=== PATIENT | male | born 1960 | race Hispanic/Latino ===

== ENCOUNTER → 2017-07-15 | Outpatient (CLI) | payer SELFPAY ==
[~2017-07-15] MED LIST: AMLO10TA2 PO; ASPI-1012 PO; GLIP10TA9 PO; HYDR-309 PO; PRAV40TA3 PO
== END | disposition home or self-care (01) ==
LOC: OIH 14:33
PROVIDERS: ATTEND Family Medicine
DX: Z13.6 Encounter for screening for cardiovascular disorders (principal)
CPT/HCPCS: 75571

== ENCOUNTER 2017-07-22 15:00 | Inpatient (IN) | payer OTHER ==
[~2017-07-22] VITALS: Ht 179.1 cm; Wt 154.7 kg
[2017-09-20 14:40] VITALS: BP 144/85
[2017-09-20 14:40] LABS: APPEARANCE,URINE Clear (CLEAR); BILIRUBIN,URINE Small (NEGATIVE); COLOR,URINE Dark Yellow (YELLOW); GLUCOSE, URINE (UA) Negative (NEGATIVE); KETONES,URINE Trace mg/dL (NEGATIVE); LEUKOCYTE ESTERASE ,URINE Negative (NEGATIVE); NITRATE,URINE Negative (NEGATIVE); OCCULT BLOOD,URINE Negative (NEGATIVE); PROTEIN,URINE Negative (NEGATIVE)
[2017-09-20 14:40] LABS: BASOPHILS % (AUTO) 0.7 % (0.0-5.0); EOSINOPHILS % (AUTO) 2.7 % (0.0-8.0); HEMATOCRIT 52.9 % (42-54); LYMPHOCYTES % (AUTO) 17.5 % (21.0-51.0); MEAN CORPUSCULAR HEMOGLOBIN 31.4 pg (27.0-33.0); MEAN CORPUSCULAR HGB CONC 33.6 g/dL (32.0-36.0); MEAN CORPUSCULAR VOLUME 93.4 fL (79-99); MONOCYTES % (AUTO) 7.2 % (3.0-13.0); NEUTROPHILS % (AUTO) 71.9 % (40.0-77.0); NUCLEATED RED BLOOD CELLS 0.1 % (0.0-0.19); PLATELET COUNT (AUTO) 174 K/uL (130-400); RED BLOOD CELL COUNT(AUTO) 5.66 MIL/uL (4.50-6.20); WHITE BLOOD COUNT (AUTO) 8.9 K/uL (4.8-10.8)
[2017-09-20 14:45] LABS: CREATININE 0.9 mg/dL (0.5-1.5)
[2017-09-20 14:51] LABS: BACTERIA,URINE Rare /HPF (None Seen); RBC,URINE None Seen /HPF (0-1); SQUAMOUS EPITHELIAL CELL,UR None Seen /HPF (0-2); WBC,URINE 0-1 /HPF (0-1)
[2017-09-20] MEDS ORDERED: GLIP10TA9 PO (15:02)
[2017-09-20] MEDS ORDERED: AMLO10TA2 PO (15:02)
[2017-09-20] MEDS ORDERED: PRAV40TA3 PO (15:02)
[2017-09-20 16:08] LABS: INR 0.97 (0.85-1.15); PARTIAL THROMBOPLASTIN TIME 29.2 SEC (26.3-35.5); PROTHROMBIN TIME 10.2 SEC (9.6-11.6)
[2017-09-20 19:55] VITALS: BP 149/69
[2017-09-21] VITALS (20 sets, daily range): BP systolic 110–135; BP diastolic 64–80
[2017-09-21] MEDS ORDERED: CEFAZOLIN 3GM /D5W 100ML 100 ML IV ONE (08:00)
[2017-09-21] MEDS ORDERED: SODIUM CHLORIDE 0.9% 1000ML 1,000 ML IV ONE (09:22)
[2017-09-21] MEDS ORDERED: METOCLOPRAMIDE 10 MG/2 ML VIAL ONE (09:55)
[2017-09-21] MEDS ORDERED: CELECOXIB 200 MG CAP ONE (09:56)
[2017-09-21] MEDS ORDERED: KETOROLAC TROMETHAMINE 15MG/ML ONE (09:56)
[2017-09-21] MEDS ORDERED: OXYCODONE HCL 10 MG TAB.SR.12H PO ONE (09:56)
[2017-09-21] MEDS ORDERED: ACETAMINOPHEN EXTRA STRENGTH 500 MG TABLET ONE (09:56)
[2017-09-21] MEDS ORDERED: CEFAZOLIN SODIUM 1 GM VIAL ONE (10:12)
[2017-09-21] MEDS ORDERED: EPINEPHRINE 1 MG/ML AMPULE ONE (10:12)
[2017-09-21] MEDS ORDERED: TRANEXAMIC ACID 1000MG/10ML IV ONE ×2 (10:12)
[2017-09-21] MEDS ORDERED: BUPIVACAINE/PF 0.25% 30ML VIAL IJ ONE (10:12)
[2017-09-21] MEDS: CEFAZOLIN SODIUM 1 GM VIAL ONE ×2 (10:15→11:20)
[2017-09-21] MEDS ORDERED: MIDAZOLAM HCL 1 MG/ML 2ML VIAL ONE (10:58)
[2017-09-21] MEDS ORDERED: PROPOFOL 10 MG/ML 20ML VIAL IV ONE (10:58)
[2017-09-21] MEDS ORDERED: FENTANYL CITRATE PF 50 MCG/1 ML 2ML VIAL ONE ×2 (10:59→12:08)
[2017-09-21] MEDS ORDERED: ROPIVACAINE 0.5% 5MG/ML 30ML IJ ONE (11:03)
[2017-09-21] MEDS ORDERED: MEPERIDINE-PF 50 MG/ML SYG ONE (11:14)
[2017-09-21] MEDS ORDERED: SODIUM CHLORIDE 0.9% 10 ML VIAL ONE (11:54)
[2017-09-21] MEDS ORDERED: ROCURONIUM BROMIDE 10MG/1ML 5ML VL ONE (11:54)
[2017-09-21] MEDS ORDERED: PHENYLEPHRINE HCL 10 MG/ML 1ML VIAL IV ONE (11:54)
[2017-09-21] MEDS ORDERED: LIDOCAINE PF 2% 5ML ABBOJECT ONE (11:54)
[2017-09-21] MEDS ORDERED: NEOSTIGMINE 5MG/5ML SYR IV ONE (11:54)
[2017-09-21] MEDS ORDERED: GLYCOPYRROLATE 1 MG/5 ML SYRINGE ONE (11:54)
[2017-09-21] MEDS ORDERED: POTASSIUM CHLORIDE 10% ELIXIR 20 MEQ/15 ML UDCUP PO PRN (13:30)
[2017-09-21] MEDS ORDERED: TRAMADOL HCL 50 MG TABLET PO PRN (13:30)
[2017-09-21] MEDS ORDERED: ONDANSETRON HCL 4 MG/2 ML VIAL IVP PRN (13:30)
[2017-09-21] MEDS ORDERED: OXYCODONE HCL 5 MG TAB PO PRN (13:30)
[2017-09-21] MEDS ORDERED: LIDOCAINE HCL-MPF 1% 2ML VIAL IVP PRN (13:30)
[2017-09-21] MEDS ORDERED: POTASSIUM CHLORIDE 20 MEQ ERTAB PO PRN (13:30)
[2017-09-21] MEDS ORDERED: CALCIUM CARBONATE 500 MG TABLET PO PRN (13:30)
[2017-09-21] MEDS ORDERED: FERROUS FUMARATE 324 MG TABLET PO PRN (13:30)
[2017-09-21] MEDS ORDERED: KETOROLAC TROMETHAMINE 15MG/ML IV PRN (13:30)
[2017-09-21] MEDS ORDERED: POTASSIUM CHLORIDE 20MEQ/100ML 100 ML IV PRN (13:30)
[2017-09-21] MEDS: ACETAMINOPHEN EXTRA STRENGTH 500 MG TABLET PO SCH ×2 (13:30→20:37)
[2017-09-21] MEDS ORDERED: DiphenhydrAMINE HCL 50 MG/ML VIAL IVP PRN (13:30)
[2017-09-21] MEDS ORDERED: TEMAZEPAM 15 MG CAPSULE PO PRN (13:30)
[2017-09-21] MEDS ORDERED: MEPERIDINE-PF 25 MG/ML SYG ONE (14:32)
[2017-09-21] MEDS: SODIUM CHLORIDE 0.9% 1000ML 1,000 ML IV SCH (15:24)
[2017-09-21] MEDS: INSULIN HUMULIN R 100 UNIT/ML 3ML SQ SCH ×2 (16:26→20:41)
[2017-09-21] MEDS: CEFAZOLIN SODIUM 1 GM VIAL IVP SCH (17:55)
[2017-09-21] MEDS ORDERED: CEFAZOLIN 3GM /D5W 100ML 100 ML IV SCH (18:30)
[2017-09-21] MEDS: PREGABALIN 25 MG CAP PO SCH (20:36)
[2017-09-21] MEDS: AMLODIPINE BESYLATE 5 MG TAB PO SCH (20:36)
[2017-09-21] MEDS: CELECOXIB 200 MG CAP PO SCH (20:37)
[2017-09-21] MEDS: ATORVASTATIN CALCIUM 10 MG TABLET PO SCH (20:37)
[2017-09-21] MEDS: GLIPIZIDE 5 MG TABLET PO SCH (20:37)
[2017-09-21] MEDS: ASPIRIN 325 MG TABLET PO SCH (20:37)
[2017-09-21] MEDS: FAMOTIDINE 20MG TAB 20 MG TAB PO SCH (20:37)
[2017-09-22] VITALS (9 sets, daily range): BP systolic 82–136; BP diastolic 56–86
[2017-09-22] MEDS: SODIUM CHLORIDE 0.9% 1000ML 1,000 ML IV SCH ×2 (01:36→10:03)
[2017-09-22] MEDS: CEFAZOLIN SODIUM 1 GM VIAL IVP SCH (01:36)
[2017-09-22] MEDS: OXYCODONE HCL 5 MG TAB PO PRN (01:37)
[2017-09-22 04:25] LABS: HEMATOCRIT 45.9 % (42-54); MEAN CORPUSCULAR HEMOGLOBIN 31.3 pg (27.0-33.0); MEAN CORPUSCULAR HGB CONC 33.2 g/dL (32.0-36.0); MEAN CORPUSCULAR VOLUME 94.3 fL (79-99); PLATELET COUNT (AUTO) 169 K/uL (130-400); RED BLOOD CELL COUNT(AUTO) 4.87 MIL/uL (4.50-6.20); RED CELL DISTRIBUTION WIDTH 13.9 % (11.0-15.5); WHITE BLOOD COUNT (AUTO) 12.5 K/uL (4.8-10.8)
[2017-09-22 04:38] LABS: CREATININE 0.9 mg/dL (0.5-1.5); POTASSIUM 3.6 mmol/L (3.5-5.1)
[2017-09-22] MEDS: ACETAMINOPHEN EXTRA STRENGTH 500 MG TABLET PO SCH ×3 (06:03→20:39)
[2017-09-22] MEDS: INSULIN HUMULIN R 100 UNIT/ML 3ML SQ SCH ×4 (06:04→21:00)
[2017-09-22] MEDS: POLYETHYLENE GLYCOL 3350 17 GM POWD.PACK PO SCH (08:28)
[2017-09-22] MEDS: ASPIRIN 325 MG TABLET PO SCH ×2 (08:28→20:39)
[2017-09-22] MEDS: CELECOXIB 200 MG CAP PO SCH ×2 (08:28→20:38)
[2017-09-22] MEDS: FAMOTIDINE 20MG TAB 20 MG TAB PO SCH ×2 (08:28→20:39)
[2017-09-22] MEDS: TAMSULOSIN HCL 0.4 MG CAP.ER.24H PO SCH (08:28)
[2017-09-22] MEDS: PREGABALIN 25 MG CAP PO SCH ×3 (08:29→20:39)
[2017-09-22] MEDS ORDERED: SODIUM CHLORIDE 0.9% 1000ML 1,000 ML IV SCH ×2 (10:00)
[2017-09-22] MEDS: GLIPIZIDE 5 MG TABLET PO SCH (20:39)
[2017-09-22] MEDS: ATORVASTATIN CALCIUM 10 MG TABLET PO SCH (20:39)
[2017-09-22] MEDS: AMLODIPINE BESYLATE 5 MG TAB PO SCH (20:39)
[2017-09-23 00:02] VITALS: BP 118/52
[2017-09-23 04:52] VITALS: BP 162/88
[2017-09-23] MEDS: INSULIN HUMULIN R 100 UNIT/ML 3ML SQ SCH ×3 (05:17→16:30)
[2017-09-23] MEDS: ACETAMINOPHEN EXTRA STRENGTH 500 MG TABLET PO SCH ×2 (05:34→13:37)
[2017-09-23] MEDS: OXYCODONE HCL 5 MG TAB PO PRN (06:06)
[2017-09-23 07:30] VITALS: BP 127/74
[2017-09-23] MEDS: POLYETHYLENE GLYCOL 3350 17 GM POWD.PACK PO SCH (08:08)
[2017-09-23] MEDS: PREGABALIN 25 MG CAP PO SCH (08:09)
[2017-09-23] MEDS: ASPIRIN 325 MG TABLET PO SCH (08:09)
[2017-09-23] MEDS: CELECOXIB 200 MG CAP PO SCH (08:09)
[2017-09-23] MEDS: FAMOTIDINE 20MG TAB 20 MG TAB PO SCH (08:10)
[2017-09-23] MEDS: TAMSULOSIN HCL 0.4 MG CAP.ER.24H PO SCH (08:10)
[2017-09-23 11:00] VITALS: BP 115/66
[2017-09-23 16:00] VITALS: BP 119/72
[2017-09-23] MEDS ORDERED: HYDR-309 PO (18:13)
[2017-09-23] MEDS ORDERED: ASPI-1012 PO (18:13)
[2017-09-24] MEDS ORDERED: BISACODYL 10 MG SUPP.RECT RC PRN (13:30)
== END 2017-09-23 19:04 | disposition home health service (06) | DRG 470 ==
LOC: EDSTATUS 15:00 → EDUNIT# 15:00 → DAHIP 09-21 08:36 → 4AH 09-21 14:16
PROVIDERS: ADMIT Orthopaedic Surgery; ATTEND Orthopaedic Surgery
PROC: 0SRD0J9 Replacement of Left Knee Joint with Synthetic Substitute, Cemented, Open Approach (ICD-10-PCS; principal; 2017-09-21 12:04)
DX: M17.12 Unilateral primary osteoarthritis, left knee (principal); Z68.42 Body mass index [BMI] 45.0-49.9, adult; I10 Essential (primary) hypertension; I25.10 Atherosclerotic heart disease of native coronary artery without angina pectoris; E78.5 Hyperlipidemia, unspecified; E66.01 Morbid (severe) obesity due to excess calories; Z88.8 Allergy status to other drugs, medicaments and biological substances; Z83.3 Family history of diabetes mellitus; Z82.49 Family history of ischemic heart disease and other diseases of the circulatory system
CPT/HCPCS: 36415; 80048; 81001; 82948; 85025; 85027; 85610; 85730; 88305; 88311; 96374; 96375; 97039; A4218; J0171; J0690; J1815; J1885; J2001; J2175; J2250; J2370; J2704; J2710; J2765; J2795; J3010; J3490; J7030

== ENCOUNTER → 2017-08-03 | Outpatient (CLI) | payer OTHER | END | disposition home or self-care (01) | LOC: SHCH 14:47 → EDSTATUS 15:00 | PROVIDERS: ATTEND Internal Medicine Cardiovascular Disease | DX: I10 Essential (primary) hypertension (principal) | CPT/HCPCS: 93306 ==

== ENCOUNTER → 2017-08-05 | Outpatient (CLI) | payer OTHER ==
[~2017-08-05] MED LIST changes: +REGADENOSON 0.4 MG/5 ML PF SYG IVP SCH
== END | disposition home or self-care (01) ==
LOC: SHCH 07:55 → EDUNIT# 08:20 → EDSTATUS 08:20
PROVIDERS: ATTEND Internal Medicine Cardiovascular Disease
DX: Z01.810 Encounter for preprocedural cardiovascular examination (principal); E78.5 Hyperlipidemia, unspecified
CPT/HCPCS: 78452; 93017; 96374; A9500 ×2; J2785